=== PATIENT | male | born 1960 | race Caucasian/White ===

== ENCOUNTER 2017-02-01 10:17 | Day surgery (SDC) | payer BC ==
[2017-02-01] MEDS ORDERED: Sodium Chloride 0.9% 1,000 ML IV SCH (10:45)
[2017-02-01] MEDS ORDERED: Lidocaine 2% Viscous Solution 15 ML Cup ONE (11:01)
[2017-02-01] MEDS ORDERED: Lidocaine 4% Top Soln 50 ML Bottle ONE (11:01)
[2017-02-01] MEDS ORDERED: Propofol 200 MG/20 ML SDV ONE (11:31)
[2017-02-01] MEDS ORDERED: Midazolam 1 MG/ML 2 ML SDV ONE (11:32)
[2017-02-01] MEDS ORDERED: fentaNYL 100 MCG/2 ML SDV ONE (11:32)
[2017-02-01] MEDS ORDERED: Lidocaine 4% Top Soln 4 ML LTA Syringe ONE (11:49)
[2017-02-01 14:04] VITALS: BP 103/63
--- NOTE | 2017-02-02 08:50 | OR ---
DATE OF PROCEDURE: 02/01/2017 PROCEDURE: Bronchoscopy. FINDINGS: Normal bronchoscopy. PATHOLOGY: Bronchial lavage of right middle lobe lung. COMPLICATIONS: None. LOG CUTTER: None. ANESTHESIA: MAC. INDICATIONS: This is a pleasant gentleman with a CT scan diagnosed an anomaly in a nonsmoker, concerning for mucus plug versus malignancy. COMPLICATION: None. PROCEDURE IN DETAIL: The patient was placed in a supine position. The left naris was entered. The bronchoscope was introduced. The left lung was interrogated first. It was found to be normal. No evidence of pneumonia, mass, mucus plugging or other abnormalities. The right lung was inspected. There was also no evidence of mass, plug, or abnormality. All aspects of the bronchial tree were evaluated. The right lower lobe was also evaluated and underwent a bronchial lavage. This will be sent to Pathology. The trachea was normal. The cord was normal. The patient tolerated the procedure well. Gregg Bhakta MD /[id number]
== END 2017-02-01 14:11 | disposition home or self-care (01) ==
LOC: JP.SDS 10:17
PROVIDERS: ATTEND Surgery
DX: R91.8 Other nonspecific abnormal finding of lung field (principal)
CPT/HCPCS: 31624; 87015; 87070; 87102; 87116; 87205; 87206; 87220; A9270; J2250; J2704; J3010; J7040; 88112; 88305